=== PATIENT | male | born 1990 | race Two or more races ===

== ENCOUNTER 2018-04-15 01:49 | Emergency (ER) | payer SELFPAY ==
[2018-04-15 01:54] VITALS: RESP 18; TEMP 97.5
--- NOTE | 2018-04-15 02:12 | ED PDOC ---
HPI: Psych/Substance Abuse Time Seen by Provider: 04/15/18 01:51 Chief Complaint (Nursing): Alcohol Ingestion ED Caveat: Intoxicated History Per: Patient, EMS Additional Complaint(s): As per EMS pt. vomited while at a restaurant today. Pt. admits to drinking alcohol today. Offers no complaints. Denies abd pain, injury, fall. Past Medical History Reviewed: Historical Data, Nursing Documentation, Vital Signs Vital Signs: Last Vital Signs Temp 97.5 F L 04/15/18 01:52 Pulse 77 04/15/18 01:52 Resp 18 04/15/18 01:52 BP 108/73 04/15/18 01:52 Pulse Ox 97 04/15/18 01:52 - Family History Family History: States: No Known Family Hx - Allergies Allergies/Adverse Reactions: Allergies Allergy/AdvReac Type Severity Reaction Status Date / Time No Known Allergies Allergy Verified 04/15/18 01:52 Review of Systems ROS Statement: Except As Marked, All Systems Reviewed And Found Negative Gastrointestinal: Positive for: Vomiting Physical Exam - Reviewed Nursing Documentation Reviewed: Yes Vital Signs Reviewed: Yes - Physical Exam Appears: Positive for: Well, Non-toxic, No Acute Distress Head Exam: Positive for: ATRAUMATIC, NORMAL INSPECTION, NORMOCEPHALIC Skin: Positive for: Normal Color, Warm. Negative for: Rash Eye Exam: Positive for: EOMI, Normal appearance, PERRL ENT: Positive for: Normal ENT Inspection Neck: Positive for: Normal, Painless ROM Cardiovascular/Chest: Positive for: Regular Rate, Rhythm Respiratory: Positive for: CNT, Normal Breath Sounds Gastrointestinal/Abdominal: Positive for: Normal Exam, Soft. Negative for: Tenderness Back: Positive for: Normal Inspection. Negative for: L CVA Tenderness, R CVA Tenderness, Vertebral Tenderness Extremity: Positive for: Normal ROM Neurologic/Psych: Positive for: Alert, Other (slurred speech; AOB). Negative for: Aphasia, Facial Droop - ECG O2 Sat by Pulse Oximetry: 97 - Progress ED Course And Treament: 0545 On re-evaluation, pt. AOx3. Offers no complaints. Abd remains soft and non- tender. Gait steady, unassisted. No slurred speech. Disposition - Clinical Impression Clinical Impression: Alcohol intoxication - Patient ED Disposition Is Patient to be Admitted: No - Disposition Referrals: [facility] [Outside] Disposition: Routine/Home Disposition Time: 05:50 Condition: IMPROVED Instructions: Alcohol Use - When Is Drinking a Problem? Forms: [facility] (Pashto)
[2018-04-15 05:34] VITALS: PULSE 86
[2018-04-15 05:58] VITALS: BP 116/78; O2SAT 98
== END 2018-04-15 05:57 | disposition home or self-care (01) ==
LOC: H.ER 01:49
DX: F10.129 Alcohol abuse with intoxication, unspecified (principal)